=== PATIENT | female | born 1945 | race Caucasian/White ===

== ENCOUNTER 2020-12-11 10:01 | Day surgery (SDC) | payer MEDICARE, OTHER ==
[2020-12-11] VITALS (9 sets, daily range): BP systolic 127–168; BP diastolic 70–88; PULSE 69–82; TEMP 97.9–98.3
[~2020-12-11] VITALS: Ht 162.6 cm; Wt 64.8 kg
[2020-12-11] MEDS ORDERED: LEXAPRO20 MG PO (10:41)
[2020-12-11] MEDS ORDERED: WELLBUTRIN XL150 MG PO (10:42)
[2020-12-11] MEDS ORDERED: REMERON 15M15 MG/TA1 PO (10:43)
[2020-12-11] MEDS ORDERED: PROTONIX 40MG T40 MG PO (10:43)
[2020-12-11] MEDS ORDERED: KLONOPIN 1MG1 MG PO (10:44)
[2020-12-11] MEDS ORDERED: CALCIUM 600MG+D1 TAB PO (10:44)
--- NOTE | 2020-12-11 16:50 | NUR ---
Patient is back to the floor from surgery. She is drowsy but oriented. Denies nausea at this time. Rating pain at about a 2 on a 0-10 scale. Lapsites to abdomen are C/D/I. Oriented patient to room. Explained how to order food for when she is ready. No other changes at this time. Call light within reach.
--- NOTE | 2020-12-11 18:30 | NUR ---
Patient is more awake. She is having some pain to her left shoulder/neck. She did not want pain medications. Denies nausea. She got up to the bathroom and was able to void without issues. She had some jello without nausea. She has some subcutaneious air to her left shoulder and neck area. Explained ambulating in the hallway will help with the air. No other changes at this time. Call light within reach.
--- NOTE | 2020-12-11 20:45 | NUR ---
Pt. sitting up in bed. Pt. is A&OX3, assessment complete. INT to lt. wrist patent. Pt. reports pain in neck at a 3 on pain scale. Crepitis noted to lt. neck and shoulder area. Abd. lap sites x6. Bandaids CDI. Pt. denies further needs, call light within reach.
[2020-12-12] VITALS: BP 105/54; PULSE 82; TEMP 98
[2020-12-12 04:00] VITALS: BP 144/75; PULSE 73; TEMP 97.5
[2020-12-12 07:40] VITALS: BP 91/66; PULSE 80; TEMP 98.2
--- NOTE | 2020-12-12 09:00 | NUR ---
Patient resting at bedside at this time. Patient is alert and oriented, answers questions appropriately. Patient states that she is having some trouble swallowing, but denies pain. Order for ST to evaluate swallowing placed. Denies further needs at this time, call light within reach.
--- NOTE | 2020-12-12 09:26 | NUR ---
Initial visit; Patient thanked Investigation Clerk for looking in on her and offering God's blessings and continued good health.
--- NOTE | 2020-12-12 09:26 | NUR ---
INOCENCIO met with the patient to discuss discharge plan. The patient lives in [place] with her , Matthew ([phone]). She reports independence with ADLs and does not have any DME. The patient's PCP is Dr. Martha Villalobos and she receives her medications from [facility]. She reports no difficulties obtaining her meds. The patient does not have a DPOA-HC in EMR, but she states that she does have one completed and that it should designate her . The patient plans to return home with her upon discharge. No additional needs at this time.
[2020-12-12 11:55] VITALS: BP 125/54; PULSE 72; TEMP 98.1
--- NOTE | 2020-12-12 12:26 | NUR ---
Crepitus noted bilaterally on upper chest near clavicles
[2020-12-12 15:29] VITALS: BP 143/59; PULSE 82; TEMP 99
--- NOTE | 2020-12-12 16:51 | NUR ---
ASSUMING CARE OF PT FROM MARIA ESTHER COCHRAN.
[2020-12-12] MEDS ORDERED: ULTRAM 50MG TAB50 MG PO (17:08)
--- NOTE | 2020-12-12 17:54 | NUR ---
DISCAHRGE INSTRUCTIONS REVIEWED WITH PT AND , QUESTIONS SOLICITED AND ANSWERED. PT LEFT FLOOR AMBULATORY WITH STAFF.
== END 2020-12-12 18:00 | disposition home or self-care (01) ==
LOC: SDCO 10:01 → EDSEX 10:01 → SDCO 12:00 → SURG 16:34 → SDCO 12-12 18:00
DX: K21.9 Gastro-esophageal reflux disease without esophagitis (principal); K44.9 Diaphragmatic hernia without obstruction or gangrene; E78.1 Pure hyperglyceridemia; F32.9 Major depressive disorder, single episode, unspecified; Z79.899 Other long term (current) drug therapy; Z88.8 Allergy status to other drugs, medicaments and biological substances; Z20.822 Contact with and (suspected) exposure to COVID-19
CPT/HCPCS: OP; C1781; J0690; J1170; J2405; J2550; J2704; J3010; J7120